=== PATIENT | male | born 1975 | race Caucasian/White ===

== ENCOUNTER 2024-09-27 21:40 | Observation (INO) ==
[2024-09-27] MEDS: ONDANSETRON INJ 2 MG/ML 2 ML VIAL IV STA (22:06)
[2024-09-27] MEDS: MoRPHine SULFATE 4 MG/ML 1 ML CARP\\VIAL IV PRN (22:06)
[2024-09-27] MEDS: SODIUM CHLORIDE 0.9% 1,000 ML IV STA (22:06)
[2024-09-27 22:13] LABS: Hematocrit (blood only) 43.8 % (42.0-52.0); Hemoglobin 14.4 g/dl (14.0-18.0); Immature Granulocytes # (auto) 0.02 K/uL (0.01-0.20); Immature Granulocytes % (auto) 0.2 %; Mean Corpuscular Hemoglobin 28.7 pg (25.0-34.0); Mean Corpuscular Volume 87.3 fL (80.0-100.0); Platelet Count 237 K/uL (130-400); RDW Standard Deviation 42.5 fL (36.4-46.3); Red Blood Count 5.02 M/uL (4.70-6.10); White Blood Count 9.66 K/ul (4.8-10.8)
--- NOTE | 2024-09-27 22:18 | Emergency Department Note ---
History of Present Illness General Chief complaint: Kidney Stone Stated complaint: KIDNEY STONE Time Seen by Provider: 09/27/24 21:47 History of Present Illness Maximum Pain Intensity: 10 This 49-year-old male presents ER complaint of sudden onset of left flank pain today. No history of kidney stones. No recent fall. He has started mountain biking which is new for him. Patient denies chest pain, dyspnea, abdominal pain, radiating pain, urinary symptoms or any other medical complaints. No rash. Home Medications Medication Instructions Recorded Confirmed Type multivitamin 1 tab PO DAILY 11/26/20 09/27/24 History buspirone 5 mg tablet 5 mg PO BID #180 tabs 02/19/24 09/27/24 Rx Allergies Allergy/AdvReac Type Severity Reaction Status Date / Time No Known Allergies Allergy Verified 09/27/24 22:08 Past Med/Surg History Problem List (Updated 09/28/24 @ 01:44 by Celena Rfufin PA-C) Liver mass (Acute) Ureterolithiasis (Acute) Renal colic on left side (Acute) TANNA (generalized anxiety disorder) Encounter for wellness examination Medical History (Updated 09/28/24 @ 01:44 by Celena Ruffin PA-C) TANNA (generalized anxiety disorder) Acromioclavicular (joint) (ligament) sprain torn rotator cuff Adhesive capsulitis Surgical History History of rectal surgery (07/08/21) Excision of Anal Mass and hemorroidectomy - Dago Mccabe, DO History of biopsy (06/29/21) Anus, lesion, excision: Dr. Mccabe - Condyloma. - Negative for high-grade dysplasia and carcinoma. S/P vasectomy S/P wisdom tooth extraction Family History Father Diabetes COPD (chronic obstructive pulmonary disease) Sister Cellulitis Pulmonary embolism Hematoma Bipolar disorder with psychotic features Denies family history of Ovarian cancer Prostate cancer Myocardial infarction Breast cancer Colorectal cancer Social History Smoking Status: Never smoker Tobacco Type: Cigarettes Age Started Using Tobacco: 14; Age Quit Using Tobacco: 24; packs per day: 1; Second Hand Exposure: No; Do You Dip or Chew Tobacco: No; Hx Alcohol Use: Yes (current no alcohol) Alcohol type: beer Alcohol Intake Frequency: 2-3 x/Week Alcohol Intake Frequency Comment: former etoh use Hx Substance Use: No Preferred Language: Slovak Communication Ability: Effective Visual Impairment: No Limitations Hearing Ability: Normal 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 Beliefs That Will Affect Care: None marital status: Current Living Situation: Spouse current occupational status: employed 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 How many Children do You have: 1 Feels Safe at Home: Yes Childhood Exposure to Second-Hand Smoke: Yes Diet: regular caffeine: Yes during the past year weight has: decreased > 10 lbs Dental Care, Regularly: No Physical Activity Frequency: Daily Seatbelt Use: always Sunscreen Use: Yes Assistive Devices: Glasses Review of Systems A total of 10 systems reviewed and were otherwise negative Physical Exam Vital Signs Vital Signs - 24 hr 09/27/24 21:44 09/27/24 22:29 09/27/24 22:58 Temperature 36.9 C Temperature Source Temporal Artery Scan Pulse Rate 74 48 L Pulse Rate [Finger] 82 Pulse Rate from SpO2 Sensor 47 L Pulse Rhythm Regular Pulse Strength Normal Respiratory Rate 20 20 16 Respiratory Effort / Characteristics Non-Labored Spontaneous Respiratory Depth Normal Respiratory Pattern Regular Blood Pressure 163/84 H Blood Pressure [Right Arm] 146/82 H Blood Pressure Mean 110 Blood Pressure Mean [Right Arm] 103 Pulse Oximetry 98 99 86 L Oxygen Delivery Method Room Air Room Air Room Air Oxygen Flow Rate Sepsis Recent Fever Within 48 Hours No Sepsis New/Unexplained Change in Mental Status No Sepsis Action Taken by Nursing No Action Required Oxygen Flow Rate - Titration Pulse Oximetry Post Tiitration 09/27/24 22:58 09/27/24 22:59 09/27/24 23:00 Temperature Temperature Source Pulse Rate 54 L 57 L Pulse Rate [Finger] Pulse Rate from SpO2 Sensor 54 L Pulse Rhythm Pulse Strength Respiratory Rate 18 Respiratory Effort / Characteristics Respiratory Depth Respiratory Pattern Blood Pressure Blood Pressure [Right Arm] Blood Pressure Mean Blood Pressure Mean [Right Arm] Pulse Oximetry 87 L 95 Oxygen Delivery Method Room Air Nasal Cannula Oxygen Flow Rate 0 2 Sepsis Recent Fever Within 48 Hours Sepsis New/Unexplained Change in Mental Status Sepsis Action Taken by Nursing Oxygen Flow Rate - Titration 2 Pulse Oximetry Post Tiitration 95 09/27/24 23:03 09/27/24 23:12 09/27/24 23:12 Temperature Temperature Source Pulse Rate 57 L 53 L Pulse Rate [Finger] Pulse Rate from SpO2 Sensor 59 L 55 L Pulse Rhythm Pulse Strength Respiratory Rate 16 16 Respiratory Effort / Characteristics Respiratory Depth Respiratory Pattern Blood Pressure 138/73 Blood Pressure [Right Arm] Blood Pressure Mean 94 Blood Pressure Mean [Right Arm] Pulse Oximetry 92 97 93 Oxygen Delivery Method Nasal Cannula Nasal Cannula Nasal Cannula Oxygen Flow Rate 2 2 1 Sepsis Recent Fever Within 48 Hours Sepsis New/Unexplained Change in Mental Status Sepsis Action Taken by Nursing Oxygen Flow Rate - Titration 1 Pulse Oximetry Post Tiitration 96 09/27/24 23:30 09/27/24 23:30 09/28/24 00:00 Temperature Temperature Source Pulse Rate 61 61 Pulse Rate [Finger] Pulse Rate from SpO2 Sensor 60 59 L Pulse Rhythm Pulse Strength Respiratory Rate 20 17 Respiratory Effort / Characteristics Respiratory Depth Respiratory Pattern Blood Pressure 137/77 124/72 Blood Pressure [Right Arm] Blood Pressure Mean 97 89 Blood Pressure Mean [Right Arm] Pulse Oximetry 97 97 97 Oxygen Delivery Method Nasal Cannula Room Air Room Air Oxygen Flow Rate 1 Sepsis Recent Fever Within 48 Hours Sepsis New/Unexplained Change in Mental Status Sepsis Action Taken by Nursing Oxygen Flow Rate - Titration 0 Pulse Oximetry Post Tiitration 97 09/28/24 00:33 09/28/24 01:00 09/28/24 01:31 Temperature Temperature Source Pulse Rate 58 L 64 78 Pulse Rate [Finger] Pulse Rate from SpO2 Sensor 59 L 78 Pulse Rhythm Pulse Strength Respiratory Rate 14 17 20 Respiratory Effort / Characteristics Respiratory Depth Respiratory Pattern Blood Pressure 120/79 106/68 156/105 H Blood Pressure [Right Arm] Blood Pressure Mean 92 80 121 Blood Pressure Mean [Right Arm] Pulse Oximetry 96 97 98 Oxygen Delivery Method Room Air Room Air Room Air Oxygen Flow Rate Sepsis Recent Fever Within 48 Hours Sepsis New/Unexplained Change in Mental Status Sepsis Action Taken by Nursing Oxygen Flow Rate - Titration Pulse Oximetry Post Tiitration VITALS: Vitals are noted on the nurse's note and reviewed by myself. Vital signs stable. GENERAL: Pleasant patient, in no acute distress, nondiaphoretic, well-developed well-nourished. SKIN: Capillary reflex less than 2 seconds. HEENT: Normocephalic. PERRLA. EOMI. Nares patent. Mucous membranes moist. Neck is supple without nuchal rigidity. HEART: Regular rate and rhythm LUNGS: Clear to auscultation bilaterally without wheezes, rales or rhonchi. No retractions or accessory muscle use. ABDOMEN: Positive bowel sounds x 4. Normal tympanic percussion. Soft, nontender, without masses or organomegaly. Schrader sign negative. No guarding or rebound tenderness. no CVA tenderness MUSCULOSKELETAL: No gross musculoskeletal defects. NEURO: Patient was alert and oriented to person place and time. No focal neurological deficits. Course Administered Medications Hydromorphone HCl (Hydromorphone Inj 1 Mg/Ml Syringe) 1 mg IV Q15M PRN PRN Reason: Pain Stop: 10/11/24 22:52 Last Admin: 09/27/24 22:56 Dose: 1 mg Documented By: MICHAEL Morphine Sulfate (Morphine Sulfate 4 Mg/Ml 1 Ml Carp\Vial) 4 mg IV Q15M PRN PRN Reason: Pain Stop: 10/11/24 21:50 Last Admin: 09/27/24 22:27 Dose: 4 mg Documented By: Admin: 09/27/24 22:06 Dose: 4 mg Documented By: MICHAEL Discontinued Medications Sodium Chloride (Nss) 1,000 mls @ 999 mls/hr IV .Q1H1M STA Stop: 09/27/24 22:51 Last Infusion: 09/27/24 23:02 Dose: Infused Documented By: Admin: 09/27/24 22:06 Dose: 999 mls/hr Documented By: MICHAEL Ioversol (Optiray 320 100ml) 93 ml IV ONCE ONE Stop: 09/27/24 22:21 Last Admin: 09/27/24 22:21 Dose: 93 ml Documented By: JUDI Ketorolac Tromethamine (Ketorolac Tromethamine 15 Mg/Ml Vial) 10 mg IV NOW STA Stop: 09/27/24 22:54 Last Admin: 09/27/24 22:56 Dose: 10 mg Documented By: MICHAEL Ondansetron HCl (Ondansetron Inj 2 Mg/Ml 2 Ml Vial) 4 mg IV NOW STA Stop: 09/27/24 21:52 Last Admin: 09/27/24 22:06 Dose: 4 mg Documented By: MICHAEL Tamsulosin HCl (Tamsulosin Hcl 0.4 Mg Cap) 0.4 mg PO NOW ONE Stop: 09/28/24 01:26 Last Admin: 09/28/24 01:41 Dose: 0.4 mg Documented By: RADHA Medical Decision Making Medical Records Attestation: I reviewed the patient's medical records. Home Medications Current Medication List: was personally reviewed by me Laboratory Data Attestation: I reviewed the patient's lab results. 09/27/24 22:02 09/27/24 22:02 Lab Results 09/27/24 09/27/24 09/27/24 Range/Units 22:02 22:07 Unknown WBC 9.66 (4.8-10.8) K/ul RBC 5.02 (4.70-6.10) M/uL Hgb 14.4 (14.0-18.0) g/dl POC Hgb 14.6 (14.0-18.0) g/dl Hct 43.8 (42.0-52.0) % POC Hct 43 (42-52) % MCV 87.3 (80.0-100.0) fL MCH 28.7 (25.0-34.0) pg MCHC 32.9 (32.0-36.0) g/dL RDW Std Deviation 42.5 (36.4-46.3) fL RDW Coeff of Juan Alberto 13.5 (11.5-14.5) % Plt Count 237 (130-400) K/uL MPV 9.8 (9.4-12.4) fL Immature Gran % (Auto) 0.2 % Neut % (Auto) 62.3 % Lymph % (Auto) 29.0 % [place] % (Auto) 7.9 % Eos % (Auto) 0.4 % Baso % (Auto) 0.2 % Neut # (Auto) 6.02 (1.40-6.50) K/uL Lymph # (Auto) 2.80 (1.20-3.40) K/uL [place] # (Auto) 0.76 H (0.11-0.59) K/uL Eos # (Auto) 0.04 (0.00-0.50) K/uL Baso # (Auto) 0.02 (0.00-0.20) K/uL Immature Gran # (Auto) 0.02 (0.01-0.20) K/uL POC Sodium 143 (135-144) mmol/L Sodium 143 (136-145) mmol/L POC Potassium 4.1 (3.3-5.0) mmol/L Potassium 4.0 (3.5-5.1) mmol/L POC Chloride 108 (101-112) mmol/L Chloride 109 H (98-107) mmol/L Carbon Dioxide 27 (21-32) mmol/L POC Total CO2 23 L (24-31) mmol/L Anion Gap 7 (3-11) POC Anion Gap 16.0 (16-25) mmol/L POC BUN 18 (7-18) mg/dl BUN 17 (6-23) mg/dl Creatinine 1.21 (0.6-1.4) mg/dl POC Creatinine 1.3 (0.6-1.3) mg/dl Est Cr Clr Drug Dosing 92.1 ml/min eGFR 73.40 BUN/Creatinine Ratio 14.0 (10-20) Glucose 103 H (70-99(Fasting)) mg/dl POC Glucose (other) 100 H (70-99) mg/dl Calcium 9.3 (8.6-10.3) mg/dl POC Ioniz Calcium Marissa 1.14 (1.12-1.32) mmol/l Total Bilirubin 0.7 (0.2-1.0) mg/dl AST 36 (13-39) U/L ALT 30 (7-52) U/L Alkaline Phosphatase 45 (34-104) U/L Total Creatine Kinase 894 H (30-223) U/L Total Protein 7.1 (6.0-8.3) gm/dl Albumin 4.2 (3.4-5.0) gm/dl Globulin 2.9 (2.5-4.0) gm/dl Albumin/Globulin Ratio 1.4 (0.9-2) Lipase 48 (11-82) U/L Urine Color Yellow Urine Appearance Clear (Clear) Urine pH 5.5 (4.5-7.5) Ur Specific [place] > 1.045 H (1.000-1.030) Urine Protein Trace H (Negative) Urine Glucose (UA) Negative (Negative) Urine Ketones 1+ H (Negative) Urine Blood 2+ H (Negative) Urine Nitrite Negative (Negative) Urine Bilirubin Negative (Negative) Urine Urobilinogen Negative (Negative) Ur Leukocyte Esterase Negative (Negative) Urine WBC (Auto) 0-5 (0-5) /hpf Urine RBC (Auto) >20 H (0-2) /hpf U Hyaline Cast (Auto) 3-5 H (0-2) /lpf U Epithel Cells (Auto) 0-2 (0-2) /hpf Urine Bacteria (Auto) None Seen (None Seen) Urine Comment Imaging Data Attestation: I personally reviewed and interpreted this imaging study as follows: Radiologist's Impression: Abdomen/Pelvis CT 09/27/24 21:52 Exam(s): CT ABDOMEN + PELVIS With Contrast IV Amt: 93 cc opti 320 EXAM: CT Abdomen and Pelvis With Intravenous Contrast CLINICAL HISTORY: severe flank pain. TECHNIQUE: Axial computed tomography images of the abdomen and pelvis with intravenous contrast. CTDI is 27 mGy and DLP is 1459 mGy-cm. Automated exposure control was utilized for the study. A dose lowering technique was utilized adhering to the principles of ALARA. CONTRAST: Patient received 93 cc opti 320 of IV contrast COMPARISON: No relevant prior studies available. FINDINGS: Lung bases: Unremarkable. No mass. No consolidation. ABDOMEN: Liver: Normal size. 1.4 cm suspected solid mass in the right lobe of the liver. 7 mm indeterminate hypodense lesion in the right lobe of the liver. Gallbladder and bile ducts: Unremarkable. No calcified stones. No ductal dilation. Pancreas: Unremarkable. No mass. No ductal dilation. Spleen: Unremarkable. No splenomegaly. Adrenals: Unremarkable. No mass. Kidneys and ureters: Mild right hydronephrosis and diffuse hydroureter to the level of a 3.9 x 4.3 mm obstructing calculus in the distal right ureter. No other obstructing calculus. Punctate nonobstructing left renal calcification. Kidneys are otherwise unremarkable. Stomach and bowel: No obstruction or ileus. Moderate stool within the colon. No evidence for diverticulitis. PELVIS: Appendix: No findings to suggest acute appendicitis. Bladder: Partially contracted with nonspecific wall thickening. No mass. Reproductive: Prominent 4 x 3.5 cm prostate gland. ABDOMEN and PELVIS: Intraperitoneal space: No free air. No free fluid. Bones/joints: No acute fracture. Soft tissues: Unremarkable. Vasculature: Unremarkable. No abdominal aortic aneurysm. Lymph nodes: Unremarkable. No enlarged lymph nodes. IMPRESSION: 3.9 x 4.3 mm obstructing calculus in the distal left ureter with proximal hydronephrosis and hydroureter. 1.4 cm suspected solid mass in the right lobe of the liver. Subcentimeter indeterminate hypodense lesion right lobe of the liver. Correlation with ultrasound is recommended when clinically appropriate. Electronically signed by: Angelito Mallory M.D. 09/28/24 01:40 AM MDM Narrative Prior records/ancillary studies reviewed. Triage Nursing notes reviewed. Additional history obtained from the family. The patient's history was concerning for flank pain. Differential diagnosis: Etiologies such as renal colic, appendicitis, diverticulitis, mesenteric ischemia, aortic pathology, infections, inflammatory bowel disease, PUD, biliary pathology, UTI, as well as others were entertained. Physical examination findings: As above. ER treatment provided: Morphine, Zofran, IV fluids Dilaudid, Toradol, Flomax was ordered On reassessment the patient felt better. Diagnostic interpretation by me: The labs Independently Interpreted by myself revealed no worrisome leukocytosis. Urinalysis revealed There was no sign of UTI. Mildly elevated CPK Imaging studies: Imaging was reviewed and read by radiology Consultation: A consultation was placed with the hospitalist. The case was discussed and diagnostics were reviewed. The patient was evaluated in the ER for further treatment. It appears that the patient has isolated renal colic from a left sided stone. Incidental findings on the liver were also noted. Patient still in moderate amount of pain. He did not feel comfortable going home. Medicine was consulted and case was discussed. He will be admitted for intractable kidney stone pain. No UTI. Stable labs. By the evaluation outlined above emergent etiologies such as appendicitis, diverticulitis, mesenteric ischemia, aortic pathology, infections, inflammatory bowel disease, PUD, biliary pathology, UTI, as well as others were deemed relatively unlikely. The pt informed about the findings as listed above. All questions were answered and pleased with the treatment. The chart was completed utilizing [employer] voice recognition software. Grammatical errors, random word insertions, pronoun errors, and incomplete sentences are an occassional consequence of this system due to software limitations, ambient noise, and hardware issues. Any formal questions or concerns about the content, text, or information contained within the body of this dictation should be directly addressed to the physician food and beverage assistant for clarification. Impression & Plan Renal colic on left side, Ureterolithiasis, Liver mass Discharge Plan Visit Data Chief Complaint: Kidney Stone Stated Complaint: KIDNEY STONE ED Provider: Judd Hanson ED Midlevel Provider: Celena Ruffin Discharge Problem: Renal colic on left side, Ureterolithiasis, Liver mass Patient Disposition: Admitted As Inpatient Condition: Good Forms Stand Alone Forms: My [facility] Prescriptions Prescriptions: No Action buspirone 5 mg tablet 5 mg PO BID Qty: 180 3RF multivitamin Tablet 1 tab PO DAILY Referrals Referrals: Bandar Wallis III, CRNP [Primary Care Provider] -
[2024-09-27] MEDS: OPTIRAY 320 100ml IV ONE (22:21)
[2024-09-27 22:31] LABS: Alanine Aminotransferase 30.0 U/L (7-52); Albumin Globulin Ratio 1.4 (0.9-2); Alkaline Phosphatase 45.0 U/L (34-104); Anion Gap 7.0 (3-11); Bilirubin,Total 0.7 mg/dl (0.2-1.0); Blood Urea Nitrogen 17.0 mg/dl (6-23); Calcium 9.3 mg/dl (8.6-10.3); Carbon Dioxide 27.0 mmol/L (21-32); Chloride 109.0 mmol/L (98-107); Creatine Kinase 894.0 U/L (30-223); Creatinine Clr Calc Pharmacy 92.1 ml/min; Globulin 2.9 gm/dl (2.5-4.0); Glucose 103.0 mg/dl (70-99(Fasting)); Lipase 48.0 U/L (11-82); Potassium 4.0 mmol/L (3.5-5.1); Sodium 143.0 mmol/L (136-145); Total Protein 7.1 gm/dl (6.0-8.3)
[2024-09-27] MEDS: KETOROLAC TROMETHAMINE 15 MG/ML VIAL IV STA (22:56)
[2024-09-27] MEDS: HYDROmorphone INJ 1 MG/ML SYRINGE IV PRN (22:56)
[2024-09-28 00:01] LABS: Appearance Urine Clear (Clear); Bacteria Urine Automated None Seen (None Seen); Epithelial Cell Urine Auto 0-2 /hpf (0-2); Glucose Urine UA Negative (Negative); RBC Urine Automated >20 /hpf (0-2); WBC Urine Automated 0-5 /hpf (0-5)
--- NOTE | 2024-09-28 01:37 | History & Physical Report ---
Date of Service September 28, 2024 Assessment & Plan (1) Renal stone: (2) Liver mass: (3) Elevated creatine kinase: (4) TANNA (generalized anxiety disorder): Plan 49yo male presenting with left flank pain that began earlier today. Found with 3.9 x 4.3 mm obstructing calculus in the distal left ureter with proximal hydronephrosis and hydroureter. #Renal stone - obstructing left renal stone 3.9 x 4.3mm with hydroureteronephrosis -Admit to medical -Strain urine -LR at 125mL/hr x 2L ordered -Pain control with Dilaudid PRN, Toradol PRN -Zofran PRN nausea -Colace and Miralax PRN -Keep NPO for possible procedure in AM -Urology consultation appreciated #Incidental finding of 1.4 cm suspected solid mass in the right lobe of the liver. LFTs WNL. No RUQ pain -Check RUQUS #Elevated Creatinine Kinase -likely secondary to recent increase in physical activity -IVF as above wtih LR at 125mL/hr x 2L -Repeat CK in AM #Generalized anxiety -Continue Buspirone 5mg po BID History of Present Illness Chief Complaint: left flank pain Primary Care Provider: Bandar Wallis III, ERIKA Adan Delacruz is a 49yo male presenting with left flank pain. Patient had been in his usual state of health until this evening around 21:00 when he developed acute on set of left back and flank pain. Nausea occurring with the pain. No additional complaints. Patient denies fever, chills, chest pain, cough, SOB. Denies urinary complaints. No history of renal stones. Patient recently got back into mountain biking. He has been somewhat sore getting back into this but not overly sore. Muscles soft. ER Course: NSS x 1L Morphine 4mg IV x 2 Zofran 4mg IV Toradol 10mg IV Dilaudid 1mg IV FLomax 0.4mg po Allergies Allergy/AdvReac Type Severity Reaction Status Date / Time No Known Allergies Allergy Verified 09/27/24 22:08 Home Medications Medication Instructions Recorded Confirmed Type multivitamin 1 tab PO DAILY 11/26/20 09/27/24 History buspirone 5 mg tablet 5 mg PO BID #180 tabs 02/19/24 09/27/24 Rx Past Med/Surg History Problem List (Updated 09/28/24 @ 02:44 by Jackie Simpson DO) Elevated creatine kinase Renal stone Liver mass (Acute) Ureterolithiasis (Acute) Renal colic on left side (Acute) TANNA (generalized anxiety disorder) Encounter for wellness examination Medical History TANNA (generalized anxiety disorder) Acromioclavicular (joint) (ligament) sprain torn rotator cuff Adhesive capsulitis Surgical History History of rectal surgery (07/08/21) Excision of Anal Mass and hemorroidectomy - Dago Mccabe DO History of biopsy (06/29/21) Anus, lesion, excision: Dr. Mccabe - Condyloma. - Negative for high-grade dysplasia and carcinoma. S/P vasectomy S/P wisdom tooth extraction Family History Father Diabetes COPD (chronic obstructive pulmonary disease) Sister Cellulitis Pulmonary embolism Hematoma Bipolar disorder with psychotic features Denies family history of Ovarian cancer Prostate cancer Myocardial infarction Breast cancer Colorectal cancer Social History Smoking Status: Never smoker Tobacco Type: Cigarettes Age Started Using Tobacco: 14; Age Quit Using Tobacco: 24; packs per day: 1; Second Hand Exposure: No; Do You Dip or Chew Tobacco: No; Hx Alcohol Use: Yes (current no alcohol) Alcohol type: beer Alcohol Intake Frequency: 2-3 x/Week Alcohol Intake Frequency Comment: former etoh use Hx Substance Use: No Preferred Language: Greek Communication Ability: Effective Visual Impairment: No Limitations Hearing Ability: Normal Binding Bench Worker Required: No Beliefs That Will Affect Care: None marital status: Current Living Situation: Spouse current occupational status: employed 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 How many Children do You have: 1 Feels Safe at Home: Yes Childhood Exposure to Second-Hand Smoke: Yes Diet: regular caffeine: Yes during the past year weight has: decreased > 10 lbs Dental Care, Regularly: No Physical Activity Frequency: Daily Seatbelt Use: always Sunscreen Use: Yes Assistive Devices: Glasses Review of Systems Review of Systems: All systems reviewed & are unremarkable except as noted in HPI & below Physical Exam Physical Exam: General: patient resting comfortably, NAD, non-toxic in appearance, AA&O x 4 Skin: warm, dry, intact, no rashes or lesions HEENT: NC/AT, PERRL, EOMI, anicteric sclera, conjunctiva without injection, external ear normal to inspection and nontender, nares patent, moist mucus membranes, dentition intact, no oropharyngeal lesions, neck supple, trachea midline, no LAD, no thyromegaly, no JVD Heart: +S1/S2, regular, no m/r/g Lungs: equal air entry bilaterally, no rales/rhonchi/wheezes Abd: +BS, soft, NT/ND, no masses/organomegaly/ascites, left flank pain present Ext: warm, 2+ pulses in UE/LE bilaterally, no clubbing/cyanosis or edema Neuro: nonfocal, patient AA&O x 4, speech intact, no facial droop, moving all extremities on command with equal strength 5/5 Results & Data Results & Data Vital Signs (Past 12 Hours) Vital Signs Temp Pulse Pulse Resp BP BP Pulse Ox 09/28/24 01:31 78 20 156/105 H 98 09/28/24 01:00 64 17 106/68 97 09/28/24 00:33 58 L 14 120/79 96 09/28/24 00:00 61 17 124/72 97 09/27/24 23:30 61 20 137/77 97 09/27/24 23:30 97 09/27/24 23:12 53 L 16 138/73 93 09/27/24 23:12 97 09/27/24 23:03 57 L 16 92 09/27/24 23:00 57 L 09/27/24 22:59 54 L 18 95 09/27/24 22:58 87 L 09/27/24 22:58 48 L 16 86 L 09/27/24 22:29 82 20 146/82 H 99 09/27/24 21:44 36.9 C 74 20 163/84 H 98 O2 Del Method O2 Flow Rate 09/28/24 01:31 Room Air 09/28/24 01:00 Room Air 09/28/24 00:33 Room Air 09/28/24 00:00 Room Air 09/27/24 23:30 Room Air 09/27/24 23:30 Nasal Cannula 1 09/27/24 23:12 Nasal Cannula 1 09/27/24 23:12 Nasal Cannula 2 09/27/24 23:03 Nasal Cannula 2 09/27/24 23:00 09/27/24 22:59 Nasal Cannula 2 09/27/24 22:58 Room Air 0 09/27/24 22:58 Room Air 09/27/24 22:29 Room Air 09/27/24 21:44 Room Air Laboratory Results Laboratory Results WBC 9.66 K/ul (4.8-10.8) 09/27/24 22:02 RBC 5.02 M/uL (4.70-6.10) 09/27/24 22:02 Hgb 14.4 g/dl (14.0-18.0) 09/27/24 22:02 POC Hgb 14.6 g/dl (14.0-18.0) 09/27/24 22:07 Hct 43.8 % (42.0-52.0) 09/27/24 22:02 POC Hct 43 % (42-52) 09/27/24 22:07 MCV 87.3 fL (80.0-100.0) 09/27/24 22:02 MCH 28.7 pg (25.0-34.0) 09/27/24 22:02 MCHC 32.9 g/dL (32.0-36.0) 09/27/24 22:02 RDW Std Deviation 42.5 fL (36.4-46.3) 09/27/24 22:02 RDW Coeff of Juan Alberto 13.5 % (11.5-14.5) 09/27/24 22:02 Plt Count 237 K/uL (130-400) 09/27/24 22:02 MPV 9.8 fL (9.4-12.4) 09/27/24 22:02 Immature Gran % (Auto) 0.2 % 09/27/24 22:02 Neut % (Auto) 62.3 % 09/27/24 22:02 Lymph % (Auto) 29.0 % 09/27/24 22:02 [place] % (Auto) 7.9 % 09/27/24 22:02 Eos % (Auto) 0.4 % 09/27/24 22:02 Baso % (Auto) 0.2 % 09/27/24 22:02 Neut # (Auto) 6.02 K/uL (1.40-6.50) 09/27/24 22:02 Lymph # (Auto) 2.80 K/uL (1.20-3.40) 09/27/24 22:02 [place] # (Auto) 0.76 K/uL (0.11-0.59) H 09/27/24 22:02 Eos # (Auto) 0.04 K/uL (0.00-0.50) 09/27/24 22:02 Baso # (Auto) 0.02 K/uL (0.00-0.20) 09/27/24 22:02 Immature Gran # (Auto) 0.02 K/uL (0.01-0.20) 09/27/24 22:02 POC Sodium 143 mmol/L (135-144) 09/27/24 22:07 Sodium 143 mmol/L (136-145) 09/27/24 22:02 POC Potassium 4.1 mmol/L (3.3-5.0) 09/27/24 22:07 Potassium 4.0 mmol/L (3.5-5.1) 09/27/24 22:02 POC Chloride 108 mmol/L (101-112) 09/27/24 22:07 Chloride 109 mmol/L (98-107) H 09/27/24 22:02 Carbon Dioxide 27 mmol/L (21-32) 09/27/24 22:02 POC Total CO2 23 mmol/L (24-31) L 09/27/24 22:07 Anion Gap 7 (3-11) 09/27/24 22:02 POC Anion Gap 16.0 mmol/L (16-25) 09/27/24 22:07 POC BUN 18 mg/dl (7-18) 09/27/24 22:07 BUN 17 mg/dl (6-23) 09/27/24 22:02 Creatinine 1.21 mg/dl (0.6-1.4) 09/27/24 22:02 POC Creatinine 1.3 mg/dl (0.6-1.3) 09/27/24 22:07 Est Cr Clr Drug Dosing 92.1 ml/min 09/27/24 22:02 eGFR 73.40 09/27/24 22:02 BUN/Creatinine Ratio 14.0 (10-20) 09/27/24 22:02 Glucose 103 mg/dl (70-99(Fasting)) H 09/27/24 22:02 POC Glucose (other) 100 mg/dl (70-99) H 09/27/24 22:07 Calcium 9.3 mg/dl (8.6-10.3) 09/27/24 22:02 POC Ioniz Calcium Marissa 1.14 mmol/l (1.12-1.32) 09/27/24 22:07 Total Bilirubin 0.7 mg/dl (0.2-1.0) 09/27/24 22:02 AST 36 U/L (13-39) 09/27/24 22:02 ALT 30 U/L (7-52) 09/27/24 22:02 Alkaline Phosphatase 45 U/L (34-104) 09/27/24 22:02 Total Creatine Kinase 894 U/L (30-223) H 09/27/24 22:02 Total Protein 7.1 gm/dl (6.0-8.3) 09/27/24 22:02 Albumin 4.2 gm/dl (3.4-5.0) 09/27/24 22:02 Globulin 2.9 gm/dl (2.5-4.0) 09/27/24 22:02 Albumin/Globulin Ratio 1.4 (0.9-2) 09/27/24 22:02 Lipase 48 U/L (11-82) 09/27/24 22:02 Urine Color Yellow 09/27/24 Unknown Urine Appearance Clear (Clear) 09/27/24 Unknown Urine pH 5.5 (4.5-7.5) 09/27/24 Unknown Ur Specific [place] > 1.045 (1.000-1.030) H 09/27/24 Unknown Urine Protein Trace (Negative) H 09/27/24 Unknown Urine Glucose (UA) Negative (Negative) 09/27/24 Unknown Urine Ketones 1+ (Negative) H 09/27/24 Unknown Urine Blood 2+ (Negative) H 09/27/24 Unknown Urine Nitrite Negative (Negative) 09/27/24 Unknown Urine Bilirubin Negative (Negative) 09/27/24 Unknown Urine Urobilinogen Negative (Negative) 09/27/24 Unknown Ur Leukocyte Esterase Negative (Negative) 09/27/24 Unknown Urine WBC (Auto) 0-5 /hpf (0-5) 09/27/24 Unknown Urine RBC (Auto) >20 /hpf (0-2) H 09/27/24 Unknown U Hyaline Cast (Auto) 3-5 /lpf (0-2) H 09/27/24 Unknown U Epithel Cells (Auto) 0-2 /hpf (0-2) 09/27/24 Unknown Urine Bacteria (Auto) None Seen (None Seen) 09/27/24 Unknown Urine Comment 09/27/24 Unknown Impressions Abdomen/Pelvis CT 09/27/24 21:52 Exam(s): CT ABDOMEN + PELVIS With Contrast IV Amt: 93 cc opti 320 EXAM: CT Abdomen and Pelvis With Intravenous Contrast CLINICAL HISTORY: severe flank pain. TECHNIQUE: Axial computed tomography images of the abdomen and pelvis with intravenous contrast. CTDI is 27 mGy and DLP is 1459 mGy-cm. Automated exposure control was utilized for the study. A dose lowering technique was utilized adhering to the principles of ALARA. CONTRAST: Patient received 93 cc opti 320 of IV contrast COMPARISON: No relevant prior studies available. FINDINGS: Lung bases: Unremarkable. No mass. No consolidation. ABDOMEN: Liver: Normal size. 1.4 cm suspected solid mass in the right lobe of the liver. 7 mm indeterminate hypodense lesion in the right lobe of the liver. Gallbladder and bile ducts: Unremarkable. No calcified stones. No ductal dilation. Pancreas: Unremarkable. No mass. No ductal dilation. Spleen: Unremarkable. No splenomegaly. Adrenals: Unremarkable. No mass. Kidneys and ureters: Mild right hydronephrosis and diffuse hydroureter to the level of a 3.9 x 4.3 mm obstructing calculus in the distal right ureter. No other obstructing calculus. Punctate nonobstructing left renal calcification. Kidneys are otherwise unremarkable. Stomach and bowel: No obstruction or ileus. Moderate stool within the colon. No evidence for diverticulitis. PELVIS: Appendix: No findings to suggest acute appendicitis. Bladder: Partially contracted with nonspecific wall thickening. No mass. Reproductive: Prominent 4 x 3.5 cm prostate gland. ABDOMEN and PELVIS: Intraperitoneal space: No free air. No free fluid. Bones/joints: No acute fracture. Soft tissues: Unremarkable. Vasculature: Unremarkable. No abdominal aortic aneurysm. Lymph nodes: Unremarkable. No enlarged lymph nodes. IMPRESSION: 3.9 x 4.3 mm obstructing calculus in the distal left ureter with proximal hydronephrosis and hydroureter. 1.4 cm suspected solid mass in the right lobe of the liver. Subcentimeter indeterminate hypodense lesion right lobe of the liver. Correlation with ultrasound is recommended when clinically appropriate. Electronically signed by: Angelito Mallory M.D. 09/28/24 01:40 AM PG Care Time/CCT Total # of Minutes Spent Total Time Spent with Patient: Total time spent is greater than 50% in coordination of care (as documented) at patient's floor/unit and/or counseling patient: Coding Level of Care Code 20251 INT INP/OBS CARE 3/75MIN Diagnoses Renal stone N20.0 Liver mass R16.0 Elevated creatine kinase R74.8 TANNA (generalized anxiety disorder) F41.1
[2024-09-28] MEDS: TAMSULOSIN HCL 0.4 MG CAP PO ONE (01:41)
--- NOTE | 2024-09-28 01:41 | CT Scan Report ---
Exam(s): CT ABDOMEN + PELVIS With Contrast IV Amt: 93 cc opti 320 EXAM: CT Abdomen and Pelvis With Intravenous Contrast CLINICAL HISTORY: severe flank pain. TECHNIQUE: Axial computed tomography images of the abdomen and pelvis with intravenous contrast. CTDI is 27 mGy and DLP is 1459 mGy-cm. Automated exposure control was utilized for the study. A dose lowering technique was utilized adhering to the principles of ALARA. CONTRAST: Patient received 93 cc opti 320 of IV contrast COMPARISON: No relevant prior studies available. FINDINGS: Lung bases: Unremarkable. No mass. No consolidation. ABDOMEN: Liver: Normal size. 1.4 cm suspected solid mass in the right lobe of the liver. 7 mm indeterminate hypodense lesion in the right lobe of the liver. Gallbladder and bile ducts: Unremarkable. No calcified stones. No ductal dilation. Pancreas: Unremarkable. No mass. No ductal dilation. Spleen: Unremarkable. No splenomegaly. Adrenals: Unremarkable. No mass. Kidneys and ureters: Mild right hydronephrosis and diffuse hydroureter to the level of a 3.9 x 4.3 mm obstructing calculus in the distal right ureter. No other obstructing calculus. Punctate nonobstructing left renal calcification. Kidneys are otherwise unremarkable. Stomach and bowel: No obstruction or ileus. Moderate stool within the colon. No evidence for diverticulitis. PELVIS: Appendix: No findings to suggest acute appendicitis. Bladder: Partially contracted with nonspecific wall thickening. No mass. Reproductive: Prominent 4 x 3.5 cm prostate gland. ABDOMEN and PELVIS: Intraperitoneal space: No free air. No free fluid. Bones/joints: No acute fracture. Soft tissues: Unremarkable. Vasculature: Unremarkable. No abdominal aortic aneurysm. Lymph nodes: Unremarkable. No enlarged lymph nodes. IMPRESSION: 3.9 x 4.3 mm obstructing calculus in the distal left ureter with proximal hydronephrosis and hydroureter. 1.4 cm suspected solid mass in the right lobe of the liver. Subcentimeter indeterminate hypodense lesion right lobe of the liver. Correlation with ultrasound is recommended when clinically appropriate. Electronically signed by: Angelito Mallory M.D. 09/28/24 01:40 AM
[2024-09-28] MEDS ORDERED: HYDROmorphone INJ 0.5 MG/0.5 ML SYR IV PRN (03:13)
[2024-09-28] MEDS ORDERED: KETOROLAC TROMETHAMINE 15 MG/ML VIAL IV PRN (03:13)
[2024-09-28] MEDS ORDERED: ONDANSETRON INJ 2 MG/ML 2 ML VIAL IV PRN ×2 (03:13→13:21)
[2024-09-28] MEDS ORDERED: POLYETHYLENE (MIRALAX) 17 GM PACK PO PRN (03:13)
[2024-09-28] MEDS ORDERED: DOCUSATE SODIUM 100 MG CAP PO PRN (03:13)
[2024-09-28] MEDS: LACTATED RINGER'S 1,000 ML IV SCH (03:25)
--- NOTE | 2024-09-28 05:55 | Ultrasound Report ---
EXAM: US liver CLINICAL HISTORY: Mass noted on CT. TECHNIQUE: Limited ultrasound of the liver and gallbladder was performed in greyscale and Doppler. Multiple images were obtained in transverse and longitudinal planes. COMPARISON: No prior studies are available for comparison. FINDINGS: Liver: Liver size: [Measurements in length (17.7 cm), Liver appears mildly enlarged in size with homogeneous echotexture. The right hepatic lobe shows a well-defined iso- to hyperechoic focal lesion with an echogenic rim, and posterior acoustic enhancement is seen in segments VIII/VII, measuring about 2.1 x 1.5 x 1.5 cm in diameter. Hepatic vasculature appears normal. Gallbladder: Gallbladder size: It is visualized and appears normal in size and shape. Wall thickness measures 2.4 mm. No gallstones, wall thickening, or pericholecystic fluid noted. No evidence of gallbladder wall edema or signs of acute cholecystitis. Biliary Tree: Common bile duct diameter: [Measurement in 3 mm]. The common bile duct is within normal limits in caliber and not dilated. No evidence of choledocholithiasis or biliary obstruction. Pancreas: partially obscured by the gases. Right kidney: of average size (12 cm) and shape, showing normal cortical echohenicity and preserved cortico-medullary differentiation. No stones or backpressure changes. IMPRESSION: 1. Mild hepatomegaly with the right lobe two focal lesions. One is iso to hyperechoic lesion with echogenic rim and posterior acoustic enhancement; in differential diagnosis atypical hemangioma versus other benign hepatic lesions should be consedered. 2. Further assessment by [facility] [place] CT study liver protocol recommended. Electronically signed by Joel Berry 09-28-2024 05:55 AM
[2024-09-28 07:36] LABS: Anion Gap 3.0 (3-11); Blood Urea Nitrogen 17.0 mg/dl (6-23); Calcium 8.4 mg/dl (8.6-10.3); Carbon Dioxide 30.0 mmol/L (21-32); Chloride 109.0 mmol/L (98-107); Creatine Kinase 1163.0 U/L (30-223); Creatinine Clr Calc Pharmacy 110.4 ml/min; Glucose 86.0 mg/dl (70-99(Fasting)); Potassium 4.4 mmol/L (3.5-5.1); Sodium 142.0 mmol/L (136-145)
[2024-09-28] MEDS: busPIRone 5 MG TAB PO SCH (08:29)
--- NOTE | 2024-09-28 10:00 | Urology Consultation ---
Date of Consultation September 28, 2024 Assessment & Plan (1) Ureterolithiasis: Plan Left distal ureteral calculus Not infected, however pain control/nausea control remains an issue Desires intervention We discussed several possibilities including trial of passageexplained that he has a greater than 60% chance of passing the stone spontaneously if given time We also discussed ureteral stent placement with subsequent follow-up surgery at a later date versus solitary surgery conducted later this week or next week to definitively treat the stone without a preplaced stent He very much prefers the stent We discussed expectations for the stent including discomfort, blood, burning, limitations to exercise He is still eager to move forward with the stent He will be kept n.p.o. and he has been added to the OR schedule History of Present Illness Attending Physician: Katrin Robles MD History of Present Illness 49-year-old gentleman admitted with left flank and groin pain No prior history of kidney stones Afebrile, no signs of sepsis or infection Pain and nausea with primary symptoms On arrival had evaluation with lab work, imaging White blood cell count 9.6 Creatinine 1.0 UA consistent with a passing stone but no infection CT personally reviewed and interpreted Has a small stone within the left kidney Has mild to moderate hydronephrosis extending down to a stone which is approximately 5 cm above the bladder on the left. Subjectively is doing okay this morning He continues to have groin and lower back pain which all seems consistent with the location of the stone No gross hematuria, nausea is under control He is uncomfortable enough that he would like to have intervention today Allergies Allergy/AdvReac Type Severity Reaction Status Date / Time No Known Allergies Allergy Verified 09/27/24 22:08 Home Medications Medication Instructions Recorded Confirmed Type multivitamin 1 tab PO DAILY 11/26/20 09/27/24 History buspirone 5 mg tablet 5 mg PO BID #180 tabs 02/19/24 09/27/24 Rx Patient History Medical History TANNA (generalized anxiety disorder) Acromioclavicular (joint) (ligament) sprain torn rotator cuff Adhesive capsulitis Surgical History History of rectal surgery (07/08/21) Excision of Anal Mass and hemorroidectomy - Dago Mccabe, DO History of biopsy (06/29/21) Anus, lesion, excision: Dr. Mccabe - Condyloma. - Negative for high-grade dysplasia and carcinoma. S/P vasectomy S/P wisdom tooth extraction Family History Father Diabetes COPD (chronic obstructive pulmonary disease) Sister Cellulitis Pulmonary embolism Hematoma Bipolar disorder with psychotic features Denies family history of Ovarian cancer Prostate cancer Myocardial infarction Breast cancer Colorectal cancer Social History Smoking Status: Former smoker Tobacco Type: Cigarettes Age Started Using Tobacco: 14; Age Quit Using Tobacco: 24; packs per day: 1; Second Hand Exposure: No; Do You Dip or Chew Tobacco: No; Hx Alcohol Use: Yes Alcohol type: beer Alcohol Intake Frequency: 2-3 x/Week Alcohol Intake Frequency Comment: former etoh use Hx Substance Use: No Preferred Language: Welsh Communication Ability: Effective Visual Impairment: No Limitations Hearing Ability: Normal 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 Beliefs That Will Affect Care: None marital status: Current Living Situation: Family current occupational status: employed 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 How many Children do You have: 1 Other Information That Helps Us Care for You: No Feels Safe at Home: Yes Safety Concerns: Feels Safe At This Time Childhood Exposure to Second-Hand Smoke: Yes Diet: regular caffeine: Yes during the past year weight has: decreased > 10 lbs Dental Care, Regularly: No Physical Activity Frequency: Daily Seatbelt Use: always Sunscreen Use: Yes Assistive Devices: Glasses Physical Exam Physical Exam: General: patient resting comfortably, NAD, non-toxic in appearance, AA&O x 4 Skin: warm, dry, intact, no rashes or lesions HEENT: NC/AT, PERRL, EOMI, anicteric sclera, conjunctiva without injection, external ear normal to inspection and nontender, nares patent, moist mucus membranes, dentition intact, no oropharyngeal lesions, neck supple, trachea midline, no LAD, no thyromegaly, no JVD Heart: +S1/S2, regular, no m/r/g Lungs: equal air entry bilaterally, no rales/rhonchi/wheezes Abd: +BS, soft, NT/ND, no masses/organomegaly/ascites, left flank pain present Ext: warm, 2+ pulses in UE/LE bilaterally, no clubbing/cyanosis or edema Neuro: nonfocal, patient AA&O x 4, speech intact, no facial droop, moving all extremities on command with equal strength 5/5 Results & Data Vital Signs (Past 12 Hours) Vital Signs Temp Pulse Pulse Resp BP BP Pulse Ox 09/28/24 07:52 36.7 C 86 18 103/63 97 09/28/24 03:21 09/28/24 03:14 36.6 C 58 L 18 117/75 96 09/28/24 02:35 36.9 C 09/28/24 02:33 55 L 15 129/77 92 09/28/24 02:06 70 21 103/71 94 09/28/24 01:48 70 17 106/74 94 09/28/24 01:31 78 20 156/105 H 98 09/28/24 01:00 64 17 106/68 97 09/28/24 00:33 58 L 14 120/79 96 09/28/24 00:00 61 17 124/72 97 09/27/24 23:30 61 20 137/77 97 09/27/24 23:30 97 09/27/24 23:12 53 L 16 138/73 93 09/27/24 23:12 97 09/27/24 23:03 57 L 16 92 09/27/24 23:00 57 L 09/27/24 22:59 54 L 18 95 09/27/24 22:58 87 L 09/27/24 22:58 48 L 16 86 L 09/27/24 22:29 82 20 146/82 H 99 O2 Del Method O2 Flow Rate 09/28/24 07:52 Room Air 09/28/24 03:21 Room Air 09/28/24 03:14 Room Air 09/28/24 02:35 09/28/24 02:33 Room Air 09/28/24 02:06 Room Air 09/28/24 01:48 Room Air 09/28/24 01:31 Room Air 09/28/24 01:00 Room Air 09/28/24 00:33 Room Air 09/28/24 00:00 Room Air 09/27/24 23:30 Room Air 09/27/24 23:30 Nasal Cannula 1 09/27/24 23:12 Nasal Cannula 1 09/27/24 23:12 Nasal Cannula 2 09/27/24 23:03 Nasal Cannula 2 09/27/24 23:00 09/27/24 22:59 Nasal Cannula 2 09/27/24 22:58 Room Air 0 09/27/24 22:58 Room Air 09/27/24 22:29 Room Air PG Care Time/CCT Total # of Minutes Spent Total Time Spent with Patient: Total time spent is greater than 50% in coordination of care (as documented) at patient's floor/unit and/or counseling patient: Coding Level of Care Code 54264 IN/OBS CONSULT LVL 4,60M Diagnoses Ureterolithiasis N20.1
[2024-09-28] MEDS: HYDROmorphone INJ 0.5 MG/0.5 ML SYR IV PRN (12:16)
--- NOTE | 2024-09-28 12:54 | Anesthesiology Consultation ---
Date of Service September 28, 2024 Assessment & Plan Chart Review Chart Review: Acceptable Risk for Surgery and Patient NOT seen in Pre Admission Testing Consults Requested none ASA ASA2E Proposed Anesthesia Anesthesia Type: MAC History Surgery Operation Date: 09/28/24 13:00 Proposed Procedures p Cystoscopy, Left Ureteral Stent Insertion(Left) - Ernesto Mitchell MD Height/Weight Height: 5 ft 11 in Weight: 107.6 kg Allergies Allergy/AdvReac Type Severity Reaction Status Date / Time No Known Allergies Allergy Verified 09/27/24 22:08 Medications Home Medications Medication Instructions Recorded Confirmed Last Taken multivitamin 1 tab PO DAILY 11/26/20 09/27/24 11/19/23 buspirone 5 mg tablet 5 mg PO BID #180 tabs 02/19/24 09/27/24 Unknown Active Medications Generic Name Dose Route Start Last Admin Trade Name Freq PRN Reason Stop Dose Admin Buspirone HCl 5 mg 09/28/24 09:00 09/28/24 08:29 Buspirone 5 Mg Tab PO 10/28/24 08:59 5 mg BID WILLY Administration Hydromorphone HCl 0.5 mg 09/28/24 03:13 09/28/24 12:16 Hydromorphone Inj 0.5 Mg/0.5 Ml Syr IV 10/12/24 03:12 0.5 mg Q3H PRN Administration Pain (6,7,8,9,10) Lactated Ringer's 1,000 mls @ 125 mls/hr 09/28/24 03:13 09/28/24 03:25 Lr IV 09/28/24 19:12 125 mls/hr .Q8H WILLY Administration Past Medical History Medical History TANNA (generalized anxiety disorder) Acromioclavicular (joint) (ligament) sprain torn rotator cuff Adhesive capsulitis obese liver mass elevated CK Exercise / Class Metabolic Activity II 4-5 Yardwork/Stairs/Walk up hill Past Family History Family History Father Diabetes COPD (chronic obstructive pulmonary disease) Sister Cellulitis Pulmonary embolism Hematoma Bipolar disorder with psychotic features Denies family history of Ovarian cancer Prostate cancer Myocardial infarction Breast cancer Colorectal cancer Past Surgical History Surgical History History of rectal surgery (07/08/21) Excision of Anal Mass and hemorroidectomy - Dago Mccabe, History of biopsy (06/29/21) Anus, lesion, excision: Dr. Mccabe - Condyloma. - Negative for high-grade dysplasia and carcinoma. S/P vasectomy S/P wisdom tooth extraction Past Anesthesia History No Hx of Anesthesia Complications and No Family Hx of Anesthesia Complications History of PONV No Hx of PONV and No Hx of Motion Sickness Social History Smoking Status: Former smoker tobacco type: cigarettes Do You Dip or Chew Tobacco: No Hx Alcohol Use: Yes Alcohol type: beer alcohol intake frequency: holidays/special occasions only Hx Substance Use: No substance use type: does not use Physical Exam Vital Signs Last Vital Signs Temp 36.7 C 09/28/24 07:52 Pulse 86 09/28/24 07:52 Resp 18 09/28/24 07:52 BP 103/63 09/28/24 07:52 Pulse Ox 97 09/28/24 07:52 O2 Del Method Room Air 09/28/24 07:52 O2 Flow Rate 1 09/27/24 23:30 Testing Laboratory Results 09/27/24 22:02 09/28/24 06:39 Urine Color Yellow 09/27/24 Unknown Urine Appearance Clear (Clear) 09/27/24 Unknown Urine pH 5.5 (4.5-7.5) 09/27/24 Unknown Ur Specific [place] > 1.045 (1.000-1.030) H 09/27/24 Unknown Urine Protein Trace (Negative) H 09/27/24 Unknown Urine Glucose (UA) Negative (Negative) 09/27/24 Unknown Urine Ketones 1+ (Negative) H 09/27/24 Unknown Urine Nitrite Negative (Negative) 09/27/24 Unknown Ur Leukocyte Esterase Negative (Negative) 09/27/24 Unknown Urine WBC (Auto) 0-5 /hpf (0-5) 09/27/24 Unknown Urine RBC (Auto) >20 /hpf (0-2) H 09/27/24 Unknown U Hyaline Cast (Auto) 3-5 /lpf (0-2) H 09/27/24 Unknown U Epithel Cells (Auto) 0-2 /hpf (0-2) 09/27/24 Unknown Urine Bacteria (Auto) None Seen (None Seen) 09/27/24 Unknown
[2024-09-28] MEDS ORDERED: PROMETHAZINE HCL 6.25 MG in SODIUM CHLORIDE 0.9% 50 ML IV PRN (13:21)
[2024-09-28] MEDS ORDERED: FLUMAZENIL 0.1 MG/1 ML 10 ML VIAL IV PRN (13:21)
[2024-09-28] MEDS ORDERED: ATROPINE SULFATE 0.1 MG/ML 10ML SYR IV PRN (13:21)
[2024-09-28] MEDS ORDERED: HYDROmorphone INJ 1 MG/ML SYRINGE IV PRN (13:21)
[2024-09-28] MEDS ORDERED: NALOXONE HCL 0.4 MG/1 ML VIAL/CARP IV PRN (13:21)
[2024-09-28] MEDS ORDERED: PROPOFOL IV EMULSION 10 MG/ML 20 ML VIAL IV ONE (13:25)
[2024-09-28] MEDS ORDERED: MIDAZOLAM HCL 1 MG/ML 2ML VIAL ONE (13:26)
[2024-09-28] MEDS ORDERED: LIDOCAINE 2% 2 ML VIAL/AMP(20MG/ML) INFIL ONE (13:30)
[2024-09-28] MEDS: CIPROFLOXACIN 400MG / 200ML D5W IV ONE (13:37)
[2024-09-28] MEDS ORDERED: KETAMINE HCL 10MG/ML SYR ONE (13:45)
--- NOTE | 2024-09-28 14:03 | Operative Report ---
PG Post Operative Report Pre & Post Diagnosis Operation Date: 09/28/24 13:00 Pre-Op Diagnosis: obstructing left ureteral stone Post-Op Diagnosis: obstructing left ureteral stone I identified the patient and participated in the time-out.: Yes Procedure Operation Date: 09/28/24 13:00 Actual Procedures p Cystoscopy, Left Ureteral Stent Insertion(Left) - Ernesto Mitchell MD Surgeon Ernesto Mitchell MD Resident Physician none Estimated Blood Loss 0 Findings Consistent with Post-Op Diagnosis Specimens none Description of Procedure The patient was identified in the preoperative holding area, appropriate informed consents were reviewed and completed and the patient was transferred to the operative suite. Upon arrival, appropriate antibiotics and anesthesia were administered and the patient was placed in dorsal lithotomy position and prepped and draped in sterile fashion. To be indicated as 21 Haitian cystoscope with 30 degree lens. Inspection of the healthy-appearing urethra, modest size prostate without significant obstruction and a healthy appearing bladder. Ureteral orifices were in orthotopic position return my attention to the left UO. I cannulated with a sensor wire and met resistance at the extreme distal ureter consistent with a distal ureteral stone. I was able to navigate the wire beyond the stone and into the kidney. I then placed a 6 Haitian by 26 cm double-J stent. There was good drainage of old urine through and around the stent. He tolerated the procedure well and was reversed of anesthesia and taken to the recovery room in stable condition. There were no complications. I attest to the content of the Intraoperative Record and any orders documented therein. Any exceptions are noted below.
[2024-09-28 14:26] VITALS: TEMP 97.5
--- NOTE | 2024-09-28 14:32 | Anesthesiology Progress Note ---
Date of Service September 28, 2024 Anesthesia Post Procedure Vital Signs Vital Signs: Temp Pulse Pulse Pulse Resp BP BP 09/28/24 14:25 36.4 C L 73 14 115/71 09/28/24 14:15 62 17 121/73 09/28/24 14:07 36.1 C L 64 18 131/73 09/28/24 07:52 36.7 C 86 18 103/63 09/28/24 03:21 09/28/24 03:14 36.6 C 58 L 18 117/75 09/28/24 02:35 36.9 C 09/28/24 02:33 55 L 15 129/77 09/28/24 02:06 70 21 103/71 09/28/24 01:48 70 17 106/74 09/28/24 01:31 78 20 156/105 H 09/28/24 01:00 64 17 106/68 09/28/24 00:33 58 L 14 120/79 09/28/24 00:00 61 17 124/72 09/27/24 23:30 61 20 137/77 09/27/24 23:30 09/27/24 23:12 53 L 16 138/73 09/27/24 23:12 09/27/24 23:03 57 L 16 09/27/24 23:00 57 L 09/27/24 22:59 54 L 18 09/27/24 22:58 09/27/24 22:58 48 L 16 09/27/24 22:29 82 20 146/82 H 09/27/24 21:44 36.9 C 74 20 163/84 H Pulse Ox O2 Del Method O2 Flow Rate 09/28/24 14:25 93 Room Air 09/28/24 14:15 96 Room Air 09/28/24 14:07 93 Oxymask 10 09/28/24 07:52 97 Room Air 09/28/24 03:21 Room Air 09/28/24 03:14 96 Room Air 09/28/24 02:35 09/28/24 02:33 92 Room Air 09/28/24 02:06 94 Room Air 09/28/24 01:48 94 Room Air 09/28/24 01:31 98 Room Air 09/28/24 01:00 97 Room Air 09/28/24 00:33 96 Room Air 09/28/24 00:00 97 Room Air 09/27/24 23:30 97 Room Air 09/27/24 23:30 97 Nasal Cannula 1 09/27/24 23:12 93 Nasal Cannula 1 09/27/24 23:12 97 Nasal Cannula 2 09/27/24 23:03 92 Nasal Cannula 2 09/27/24 23:00 09/27/24 22:59 95 Nasal Cannula 2 09/27/24 22:58 87 L Room Air 0 09/27/24 22:58 86 L Room Air 09/27/24 22:29 99 Room Air 09/27/24 21:44 98 Room Air Pain Intensity Left Flank: Pain Intensity: 2 Transfer of Care Handoff Completed per policy Notes Mental Status: alert / awake / arousable Patient Amnestic to Procedure: Yes Nausea / Vomiting: adequately controlled Pain: adequately controlled Airway Patency, RR, SpO2: stable & adequate BP & HR: stable & adequate Hydration State: stable & adequate Anesthetic Complications: no major complications apparent
[2024-09-28 15:00] VITALS: BP 129/78; PULSE 66; RESP 16; O2SAT 96
--- NOTE | 2024-09-28 15:59 | Discharge Summary ---
Discharge Summary Date of Service September 28, 2024 Principal Dx & Hospital Course #1 = Principal Diagnosis (1) Renal stone: (2) Liver mass: (3) Elevated creatine kinase: (4) TANNA (generalized anxiety disorder): Plan 49yo male presenting with left flank pain that began earlier today. Found with 3.9 x 4.3 mm obstructing calculus in the distal left ureter with proximal hydronephrosis and hydroureter. #Renal stone - obstructing left renal stone 3.9 x 4.3mm with hydroureteronephrosis Consulted Dr. Mitchell He placed L ureteral stent Mr. Delacruz is asymptomatic after stent procedure Urology will contact to set up definitive stone procedure -continue flomax -PRN oxybutynin, pyridium, APAP or ibuprofen #Incidental finding of 1.4 cm suspected solid mass in the right lobe of the liver. LFTs WNL. No RUQ pain -RUQ ultrasound with same findings as CT -dedicated 3-phase liver CT recommended, likely benign possibly hemangiomas - can be arranged in primary care -discussed with patient #Elevated Creatinine Kinase - mild, related to recent increase in physical activity - has DOMS related to recent mountain biking -treated with IV fluids #Generalized anxiety -Continue Buspirone 5mg po BID Notes For Next Care Provider dedicated 3-phase liver CT recommended for evaluation of two small solid right liver nodules incidentally seen on CT Admission HPI Per Admitting Provider Adan Delacruz is a 49yo male presenting with left flank pain. Patient had been in his usual state of health until this evening around 21:00 when he developed acute on set of left back and flank pain. Nausea occurring with the pain. No additional complaints. Patient denies fever, chills, chest pain, cough, SOB. Denies urinary complaints. No history of renal stones. Patient recently got back into mountain biking. He has been somewhat sore getting back into this but not overly sore. Muscles soft. ER Course: NSS x 1L Morphine 4mg IV x 2 Zofran 4mg IV Toradol 10mg IV Dilaudid 1mg IV FLomax 0.4mg po Discharge Exam resting in bed, comfortable, awake and alert Ox4 Discharge Plan Discharge Items Patient Disposition: Home - Self-Care Reason For Visit: OBSTRUCTING RENAL STONE, HYDRONEPHROSIS Discharge Diagnosis: obstructing left ureteral stone with hydronephrosis Condition on Discharge: Good Activity: Per Instructions section Weightbearing: Full weightbearing Non-emergency contact: Primary Care Provider and Urologist Call non-emergency contact if: you have any medication questions, your symptoms worsen and you have a fever Follow-up/Referrals: Bandar Wallis III, ERIKA [Primary Care Provider] - Diet: Regular Addtl Attending Provider Instructions: You were treated for left sided kidney stone that was blocking the ureter Stent was placed - this will stabilize the stone from moving and allow urine to drain Stents can cause pain such as flank pain or bladder pain. -take flomax - this is well tolerated but can cause lightheadedness or low blood pressure for some people, so may be better to take it at bedtime -I prescribed oxybutinin as needed for bladder spasms - potential side effect is urinary retention -pyridium as needed for bladder pain - this can turn your urine red-orange and also can stain contact lenses and clothing It is ok to take acetaminophen and ibuprofen as directed for pain Dr. Mitchell's office will be contacting you to schedule definitive stone procedure There were two small liver lesions incidentally seen on CT and Ultrasound They are probably benign but you should have dedicated 3-phase CT of the liver - this can be arranged by primary care It was a pleasure taking care of you in the hospital, Katrin Robles MD Pending Studies at Discharge: No Stand-Alone Forms: My [facility] EpicPledge, Smoking Cessation Medications and DC Order Prescriptions: New tamsulosin 0.4 mg Capsule 0.4 mg PO HS Qty: 14 0RF oxybutynin chloride 5 mg tablet 5 - 10 mg PO Q8H PRN (Reason: bladder spasms) Qty: 30 0RF phenazopyridine [Pyridium] 100 mg tablet 100 - 200 mg PO Q8H PRN (Reason: bladder pain) Qty: 14 0RF Continued buspirone 5 mg tablet 5 mg PO BID Qty: 180 3RF multivitamin Tablet 1 tab PO DAILY Discharge Orders: Discharge Order (Routine); Ordered 09/28/24 Ordered By: Katrin Ro/Other Patient Handouts: Having a Ureteral Stent Admission Data Admit Date/Time: 09/28/24 01:37 Attending Provider: Katrin Robles Admit Provider: Jackie Simpson Primary Care Provider: Bandar Wallis III Other Providers: Jackie Simpson; Ernesto Mitchell Hospital Stay Data Consultations 09/28/24 01:26 ED Decision to Admit Stat 09/28/24 01:37 Consult Urology Routine Procedures Performed Operation Date: 09/28/24 13:00 Actual Procedures p Cystoscopy, Left Ureteral Stent Insertion(Left) - Ernesto Mitchell MD Diagnostic Imagining Performed 09/27/24 21:52 CT abd pelvis IV con only Stat 09/28/24 FL KUB Routine 09/28/24 03:13 US liver Routine Pending Results Patient Have Any Pending Studies at Discharge: No Discharge Instructions Given to Patient (Per Discharging Provider) You were treated for left sided kidney stone that was blocking the ureter Stent was placed - this will stabilize the stone from moving and allow urine to drain Stents can cause pain such as flank pain or bladder pain. -take flomax - this is well tolerated but can cause lightheadedness or low blood pressure for some people, so may be better to take it at bedtime -I prescribed oxybutinin as needed for bladder spasms - potential side effect is urinary retention -pyridium as needed for bladder pain - this can turn your urine red-orange and also can stain contact lenses and clothing It is ok to take acetaminophen and ibuprofen as directed for pain Dr. Mitchell's office will be contacting you to schedule definitive stone procedure There were two small liver lesions incidentally seen on CT and Ultrasound They are probably benign but you should have dedicated 3-phase CT of the liver - this can be arranged by primary care It was a pleasure taking care of you in the hospital, Katrin Robles MD Total Time Total Time Spent Total Time Spent (In Minutes): I personally spent: 25 minutes on clinical care activities for follow up and discharge (excluding time spent for hospital admission this morning) today on clinical care activities including: reviewing chart notes and vital signs reviewing studies discussion with reimbursement consultant(s) examining and counseling the patient writing orders writing prescriptions, discharge instructions documentation Coding Level of Care Code INP/OBS EV SAME DAY LV 3,85MIN Diagnoses Renal stone N20.0 Liver mass R16.0 Elevated creatine kinase R74.8 TANNA (generalized anxiety disorder) F41.1
[2024-09-29] MEDS ORDERED: CIPROFLOXACIN / D5W 400 MG/200 ML BAG IV SCH (06:00)
[2024-09-29] MEDS ORDERED: TAMSULOSIN HCL 0.4 MG CAP PO SCH (09:00)
--- NOTE | 2024-09-30 08:44 | Fluoroscopy Report ---
FL KUB CLINICAL HISTORY: LEFT STENT COMPARISON STUDY: None FLUOROSCOPY TIME: 2 seconds FLUOROSCOPY IMAGES: 2 EXPOSURE DOSE: 0.7 mGy FINDINGS: Fluoroscopy was provided for urologic procedure. IMPRESSION: Intraoperative fluoroscopy. ACT 112: Negative or not required by law. Electronically signed by: You Conroy M.D. 09/30/2024 8:41 AM
== END 2024-09-28 17:00 | disposition home or self-care (01) | DRG 661 ==
LOC: ED 21:40 → 3N 09-28 01:37 → INTOOBSV 09-28 01:37 → SUATTDRO 09-28 01:37 → 3N 09-28 02:35